=== PATIENT | female | born 1955 | race Hispanic/Latino ===

== ENCOUNTER → 2018-09-20 | Outpatient (CLI) | payer MEDICARE, MEDICAID | LOC: LAB.O 10:24 | PROVIDERS: ATTEND Internal Medicine Hematology & Oncology | DX: C50.412 Malignant neoplasm of upper-outer quadrant of left female breast (principal) ==

== ENCOUNTER → 2019-04-09 | Outpatient (CLI) | payer MEDICARE, MEDICAID | LOC: YCFC.O 11:28 | PROVIDERS: ATTEND Family Medicine | DX: Z00.00 Encounter for general adult medical examination without abnormal findings (principal); R53.83 Other fatigue; E55.9 Vitamin D deficiency, unspecified; Z13.220 Encounter for screening for lipoid disorders; Z79.899 Other long term (current) drug therapy ==

== ENCOUNTER 2019-04-18 05:10 | Day surgery (SDC) | payer MEDICARE, MEDICAID ==
[2019-04-18] MEDS ORDERED: LIDOCAINE 1% 10 ML VIAL INJ ONE (07:00)
[2019-04-18] MEDS ORDERED: PROPOFOL 200 MG/20 ML VIAL IV ONE (07:00)
[2019-04-18] MEDS ORDERED: LACTATED RINGERS 1,000 ML ONE (08:31)
[2019-04-18] MEDS ORDERED: MIDAZOLAM INJ 2 MG/2 ML VIAL ONE (10:19)
--- NOTE | 2019-04-18 11:39 | OP ---
PREOPERATIVE DIAGNOSIS: 1. Screening colonoscopy. 2. History of breast cancer, now being treated for metastatic carcinoma. POSTOPERATIVE DIAGNOSIS: 1. A few colon polyps. 2. Diverticulosis. 3. Possible colitis, nonsevere. PROCEDURE: Screening colonoscopy. SURGEON: Rony Truong MD ANESTHESIA: General. PROCEDURE: : The patient was consented today and brought to the Procedure Suite in the lateral position. She was made comfortable. IV general anesthesia was given with monitoring. Digital rectal exam was normal. The colonoscope was inserted. The sigmoid colon was rather twisty with lots of bowel but we got through it all the way to the cecum. This was documented by a picture of the appendiceal orifice. Upon withdrawal, there were no polyps in the ascending colon but there appeared to be a little petechiae and possible colitis. A random biopsy was taken in the distal ascending colon, the transverse colon was normal. In the descending colon we found one very small polyp at about 30 cm and an additional small polyp approximately 2 mm at 18 cm. These were completely excised with forceps. The remainder of the rectum and sigmoid showed diverticulosis but no other abnormality. She tolerated the procedure, was then awakened and taken to Recovery to be discharged. #[id number] [facility]
[2019-04-18] MEDS ORDERED: HEPARIN SODIUM 100 U/ML 5 ML SYG IV ONE (12:10)
[2019-04-18 13:42] VITALS: BP 111/61; TEMP 97.6; O2SAT 99
== END 2019-04-18 12:35 | disposition home or self-care (01) ==
LOC: AMB 05:10
PROVIDERS: ATTEND Surgery
DX: Z12.11 Encounter for screening for malignant neoplasm of colon (principal); K63.5 Polyp of colon; K57.30 Diverticulosis of large intestine without perforation or abscess without bleeding; Z85.3 Personal history of malignant neoplasm of breast; Z85.05 Personal history of malignant neoplasm of liver; Z85.89 Personal history of malignant neoplasm of other organs and systems; Z79.899 Other long term (current) drug therapy
CPT/HCPCS: 00812; 45380; 88305; J1642; J2250; J3490; J7120

== ENCOUNTER → 2020-01-26 | Outpatient (CLI) | payer MEDICARE, MEDICAID | LOC: LAB.O 11:41 | PROVIDERS: ATTEND Internal Medicine Hematology & Oncology | DX: C50.412 Malignant neoplasm of upper-outer quadrant of left female breast (principal) ==

== ENCOUNTER → 2020-02-25 | Outpatient (CLI) | payer MEDICARE, OTHER | END | disposition home or self-care (01) | LOC: HHH 11:33 | PROVIDERS: ATTEND Internal Medicine Hematology & Oncology | DX: C50.412 Malignant neoplasm of upper-outer quadrant of left female breast (principal) ==

== ENCOUNTER → 2020-03-10 | Outpatient (CLI) | payer MEDICARE, OTHER | LOC: HHH 10:24 | PROVIDERS: ATTEND Internal Medicine Hematology & Oncology | DX: C50.412 Malignant neoplasm of upper-outer quadrant of left female breast (principal) ==

== ENCOUNTER → 2020-03-31 | Outpatient (CLI) | payer MEDICARE, OTHER | LOC: HHH 10:29 | PROVIDERS: ATTEND Internal Medicine Hematology & Oncology | DX: C50.412 Malignant neoplasm of upper-outer quadrant of left female breast (principal) ==

== ENCOUNTER → 2020-04-07 | Outpatient (CLI) | payer MEDICARE, OTHER | LOC: HHH 10:47 | PROVIDERS: ATTEND Internal Medicine Hematology & Oncology | DX: C50.412 Malignant neoplasm of upper-outer quadrant of left female breast (principal) ==

== ENCOUNTER → 2020-04-14 | Outpatient (CLI) | payer MEDICARE, OTHER | LOC: HHH 10:08 | PROVIDERS: ATTEND Internal Medicine Hematology & Oncology | DX: C50.412 Malignant neoplasm of upper-outer quadrant of left female breast (principal) ==

== ENCOUNTER → 2020-04-21 | Outpatient (CLI) | payer MEDICARE, OTHER | LOC: HHH 10:22 | PROVIDERS: ATTEND Internal Medicine Hematology & Oncology | DX: C50.412 Malignant neoplasm of upper-outer quadrant of left female breast (principal) ==

== ENCOUNTER → 2020-04-28 | Outpatient (CLI) | payer MEDICARE, OTHER | LOC: HHH 10:23 | PROVIDERS: ATTEND Internal Medicine Hematology & Oncology | DX: C50.412 Malignant neoplasm of upper-outer quadrant of left female breast (principal) ==

== ENCOUNTER → 2020-05-05 | Outpatient (CLI) | payer MEDICARE, OTHER | LOC: HHH 09:18 | PROVIDERS: ATTEND Internal Medicine Hematology & Oncology | DX: C50.412 Malignant neoplasm of upper-outer quadrant of left female breast (principal) ==

== ENCOUNTER → 2020-05-12 | Outpatient (CLI) | payer MEDICARE, OTHER | LOC: HHH 10:26 | PROVIDERS: ATTEND Internal Medicine Hematology & Oncology | DX: C50.412 Malignant neoplasm of upper-outer quadrant of left female breast (principal) ==

== ENCOUNTER → 2020-05-20 | Outpatient (CLI) | payer MEDICARE, MEDICAID | LOC: HHH 09:26 | PROVIDERS: ATTEND Internal Medicine Hematology & Oncology | DX: C50.412 Malignant neoplasm of upper-outer quadrant of left female breast (principal) ==

== ENCOUNTER → 2020-05-26 | Outpatient (CLI) | payer MEDICARE, MEDICAID | LOC: HHH 11:00 | PROVIDERS: ATTEND Internal Medicine Hematology & Oncology | DX: C50.412 Malignant neoplasm of upper-outer quadrant of left female breast (principal) ==

== ENCOUNTER → 2020-06-02 | Outpatient (CLI) | payer MEDICARE, MEDICAID | LOC: HHH 10:18 | PROVIDERS: ATTEND Internal Medicine Hematology & Oncology | DX: C50.412 Malignant neoplasm of upper-outer quadrant of left female breast (principal) ==

== ENCOUNTER → 2020-06-09 | Outpatient (CLI) | payer MEDICARE, MEDICAID | LOC: HHH 11:25 | PROVIDERS: ATTEND Internal Medicine Hematology & Oncology | DX: C50.412 Malignant neoplasm of upper-outer quadrant of left female breast (principal) ==

== ENCOUNTER → 2020-06-16 | Outpatient (CLI) | payer MEDICARE, MEDICAID | LOC: HHH 10:38 | PROVIDERS: ATTEND Internal Medicine Hematology & Oncology | DX: C50.412 Malignant neoplasm of upper-outer quadrant of left female breast (principal) ==

== ENCOUNTER → 2020-06-23 | Outpatient (CLI) | payer MEDICARE, MEDICAID | LOC: HHH 09:47 | PROVIDERS: ATTEND Internal Medicine Hematology & Oncology | DX: C50.412 Malignant neoplasm of upper-outer quadrant of left female breast (principal) ==

== ENCOUNTER → 2020-06-30 | Outpatient (CLI) | payer MEDICARE, MEDICAID | LOC: HHH 11:35 | PROVIDERS: ATTEND Internal Medicine Hematology & Oncology | DX: C50.412 Malignant neoplasm of upper-outer quadrant of left female breast (principal) ==

== ENCOUNTER → 2020-07-07 | Outpatient (CLI) | payer MEDICARE, MEDICAID | LOC: HHH 10:56 | PROVIDERS: ATTEND Internal Medicine Hematology & Oncology | DX: C50.412 Malignant neoplasm of upper-outer quadrant of left female breast (principal) ==

== ENCOUNTER → 2020-07-13 | Outpatient (CLI) | payer MEDICARE, MEDICAID | LOC: HHH 11:58 | PROVIDERS: ATTEND Internal Medicine Hematology & Oncology | DX: C50.412 Malignant neoplasm of upper-outer quadrant of left female breast (principal) ==

== ENCOUNTER → 2020-07-21 | Outpatient (CLI) | payer MEDICARE, MEDICAID | LOC: HHH 10:59 | PROVIDERS: ATTEND Internal Medicine Hematology & Oncology | DX: C50.412 Malignant neoplasm of upper-outer quadrant of left female breast (principal) ==

== ENCOUNTER → 2020-07-28 | Outpatient (CLI) | payer MEDICARE, MEDICAID | LOC: HHH 10:15 | PROVIDERS: ATTEND Internal Medicine Hematology & Oncology | DX: C50.412 Malignant neoplasm of upper-outer quadrant of left female breast (principal) ==

== ENCOUNTER → 2020-08-04 | Outpatient (CLI) | payer MEDICARE, MEDICAID | LOC: HHH 09:45 | PROVIDERS: ATTEND Internal Medicine Hematology & Oncology | DX: C50.412 Malignant neoplasm of upper-outer quadrant of left female breast (principal) ==

== ENCOUNTER → 2020-08-11 | Outpatient (CLI) | payer MEDICARE, MEDICAID | LOC: HHH 12:07 | PROVIDERS: ATTEND Internal Medicine Hematology & Oncology | DX: C50.412 Malignant neoplasm of upper-outer quadrant of left female breast (principal) ==

== ENCOUNTER → 2020-08-25 | Outpatient (CLI) | payer MEDICARE, MEDICAID | LOC: HHH 09:03 | PROVIDERS: ATTEND Internal Medicine Hematology & Oncology | DX: C50.412 Malignant neoplasm of upper-outer quadrant of left female breast (principal) ==